=== PATIENT | female | born 1930 | race Caucasian/White ===

== ENCOUNTER 2017-03-15 02:58 | Inpatient (IN) | payer BC ==
--- NOTE | ~2017-03-15 | CN ---
Consultation Report [facility] [address] [place]. [address] NAME: CHRISTINE CEDEÑO : 32 STATUS : ADM Roxane PAT#: [id number] AGE: 86 ADM/REG DATE : 03/15/17 MR#: [id number] REPORT SERV DATE: 03/15/17 DICTATED BY: VASU PAK DATE: 03/15/17 REPORT STATUS : Draft TRANSCRIBED BY: ANAYELI DATE: 03/15/17 GI CONSULTATION DATE OF CONSULTATION: 03/15/2017 REASON FOR CONSULTATION: Evaluation and management of lower GI bleeding. HISTORY OF PRESENT ILLNESS: Ms. Cedeño is a very pleasant 86-year-old female patient known to Dr. 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 She states that she was in her typical state of health yesterday. She went to bed last night after watching the news, only to be awakened shortly after midnight with the sensation, she needed to have a bowel movement. She states that she had some mild lower abdominal cramps, went to the bathroom, felt as if she had diarrhea, stated that her stool "smelt like blood to her." She wiped and saw nothing, but bright red blood. She states that she talked to her son about this and told him that if that happened a second time, they were coming to the emergency room. She states that it did indeed again happen for a second time; she states it was a large volume of maroon to bright red blood with clots intermixed as well as stool, but secondary to the continuance of bleeding, she came into the hospital for further evaluation and it is documented, and the patient and son tell me that she had subsequent four bowel movements in the emergency room as well as two bloody bowel movements since coming to the floor, and she states that if she have to get up and go use the restroom again. Hemoglobin on admission was 11.1, it has decreased to 9.2. Presently the only thing she complains of is some lower abdominal cramping that typically comes before her bowel movements. She has had no nausea, no vomiting. No fever, no chills. No chest pain. No shortness of breath. No melena. Her last colonoscopy was in 12/[address] Diamond, was showing rees diverticulosis as well as internal hemorrhoids. She is on a regimen of Plavix secondary to CVA, which has not been taken in two days. I have discussed with her and the son, the CT results that showed some extensive colonic diverticulosis with some very minimal haziness in the fat adjacent to the distal and sigmoid colon with questionable mild diverticulitis pattern. I did discuss with them colonoscopy. They want to proceed as she has continued to pass bright red blood. I discussed with them the risks, benefits, alternatives, and complications, detailed them to include but not limited to risk of bleeding, perforation, infection, reaction to medication, as well as cardiac and pulmonary side effects. I also did discuss with them that she is at an increased risk secondary to questionable diverticulitis during the procedure. They still want to proceed with colonoscopy. PAST MEDICAL HISTORY: Positive for diverticulosis; COPD; diverticulitis; CVA, with Plavix; hypothyroidism; and coronary artery disease with stents. SOCIAL HISTORY: She denies alcohol, tobacco, or illicits. She still lives independently and completes all of her activities of daily living on her own. Consultation Report [address] [place]. [address] NAME: CHRISTINE CEDEÑO : 32 STATUS : ADM Roxane PAT#: [id number] AGE: 86 ADM/REG DATE : 03/15/17 MR#: [id number] REPORT SERV DATE: 03/15/17 DICTATED BY: VASU PAK DATE: 03/15/17 REPORT STATUS : Draft TRANSCRIBED BY: ANAYELI DATE: 03/15/17 FAMILY HISTORY: Noncontributory from a GI standpoint. ALLERGIES: LISTED TO IV DYE, SULFA, CELECOXIB, MILK-CONTAINING PRODUCTS, CAFFEINE, MORPHINE, HYDROCORTISONE, PREDNISONE, PRILOSEC, AND CHOCOLATE. HOME MEDICATIONS: Not listed on the chart, but she endorses Plavix. No other blood thinners per her report, nor her son's report. Past records revealed Lotensin, calcium, Coreg, vitamin D3, Synthroid, Prilosec, potassium and eye drops. REVIEW OF SYSTEMS: A 10-point review of systems has been obtained with pertinent positives being addressed in the history of present illness. PHYSICAL EXAMINATION: VITAL SIGNS: Temperature 97.5, pulse 75, respirations 16, blood pressure 128/59. NEURO: Reveals an alert, elderly female, resting in bed with no focal deficits. GENERAL: Cooperative, in no apparent distress. Awake, alert, and oriented x3. HEAD, EARS, EYES, NOSE, AND THROAT: Anicteric. Pupils equal, round, reactive to light and accommodation. Normocephalic and atraumatic. NECK: No JVD. No palpable nodes. Supple. LUNGS: Clear anteriorly with normal respiratory effort exhibited. Equal expansion. CARDIOVASCULAR SYSTEM: Regular rate and rhythm. ABDOMEN: Soft. Very minimum tenderness to the bilateral lower quadrants. No rebound, no guarding or organomegaly elicited on exam. EXTREMITIES: No edema. Normal distal pulses. SKIN: Warm, dry, and intact. PERTINENT LABORATORY DATA: Sodium 142, potassium 4, BUN of 16, creatinine 0.83. White count 8.9, hemoglobin 9.5, hematocrit 29.1, platelet count 357. Hemoglobin on 09/28/2016, was 10.6. ASSESSMENT: 1. Lower gastrointestinal bleed. This is likely a diverticular bleed. 2. Acute blood loss anemia. 3. Questionable mild diverticulitis by CT scan with normal white blood cell count and afebrile. PLAN: 1. Colon prep. 2. Follow H and H. 3. Transfuse if hemoglobin less than 8. 4. Continue antibiotics started by hospitalist. Further recommendations to follow endoscopy. Consultation Report [place] [address] [place] [address] NAME: CHRISTINE CEDEÑO : 31 STATUS : ADM Roxane PAT#: [id number] AGE: 86 ADM/REG DATE : 03/15/17 MR#: [id number] REPORT SERV DATE: 03/15/17 DICTATED BY: VASU PAK DATE: 03/15/17 REPORT STATUS : Draft TRANSCRIBED BY: ANAYELI DATE: 03/15/17 DYLON/ANAYELI Lisco CRISTINA Law / [id number] CC: DO Navi Motta MD
--- NOTE | ~2017-03-15 | EGD ---
EGD REPORT [facility] [address] [place] [address] NAME: CHRISTINE CEDEÑO : 32 STATUS : ADM Roxane PAT#: [id number] AGE: 86 ADM/REG DATE : 03/15/17 MR#: [id number] REPORT SERV DATE: 03/16/17 DICTATED BY: SHANE MARK DATE: 03/16/17 REPORT STATUS : Draft TRANSCRIBED BY: [facility] DATE: 03/16/17 Endoscopy Center Patient Name: Christine Cedeño Date of : 1930 Attending MD: SHANE MARK MD Procedure Date No Time: 03/16/2017 Procedure: Colonoscopy Indications: Hematochezia Referring MD: Navi Johnston Medicines: Monitored Anesthesia Care Complications: No immediate complications. Estimated blood loss: None. Procedure: Pre-Anesthesia Assessment: - ASA Grade Assessment: III - A patient with severe systemic disease. After I obtained informed consent, the scope was passed under direct vision. Throughout the procedure, the patient's blood pressure, pulse, and oxygen saturations were monitored continuously. The CF [id number] was introduced through the anus and advanced to the cecum, identified by appendiceal orifice and ileocecal valve. The colonoscopy was performed without difficulty. The patient tolerated the procedure well. The quality of the bowel preparation was good. Findings: The perianal exam was abnormal. Findings include non-thrombosed external hemorrhoids. The digital rectal exam was normal. Pertinent negatives include no palpable rectal lesions. Many small and large-mouthed diverticula were found in the sigmoid colon, in the descending colon, in the transverse colon and in the ascending colon. Non-bleeding internal hemorrhoids were found during retroflexion and were large. The exam was otherwise without abnormality. Impression: - Non-thrombosed external hemorrhoids found on perianal exam. - Diverticulosis in the sigmoid colon, in the descending colon, in the transverse colon and in the ascending colon. - Non-bleeding internal hemorrhoids. - The examination was otherwise normal. - A bleeding source was not identified, but was likely diverticular in nature. Rebleeding is unlikely in the EGD REPORT [address] [address] NAME: CHRISTINE CEDEÑO : 31 STATUS : ADM Roxane PAT#: [id number] AGE: 86 ADM/REG DATE : 03/15/17 MR#: [id number] REPORT SERV DATE: 03/16/17 DICTATED BY: SHANE MARK DATE: 03/16/17 REPORT STATUS : Draft TRANSCRIBED BY: [employer] DATE: 03/16/17 near future. Recommendation: - Return patient to hospital ko for observation. - Full liquid diet today. - Use fiber, for example Citrucel, Fibercon, Konsyl or Metamucil. - Hold antiplatelet/anticoagulation x 3 days Procedure Code(s): --- Professional --- 11302, Colonoscopy, flexible, proximal to splenic flexure; diagnostic, with or without collection of specimen(s) by brushing or washing, with or without colon decompression (separate procedure) Diagnosis Code(s): --- Professional --- K64.4, Residual hemorrhoidal skin tags K64.8, Other hemorrhoids K57.30, Diverticulosis of large intestine without perforation or abscess without bleeding K92.1, Melena CPT copyright 2013 [employer]. All rights reserved. The codes documented in this report are preliminary and upon tea taster review may be revised to meet current compliance requirements. Shane Mark MD SHANE MARK MD 03/16/2017 8:21 AM This report has been signed electronically. Number of Addenda: 0 Note Initiated On: 03/16/2017 7:28 AM Scope Withdrawal Time 0 hours 7 minutes 18 seconds [id number] [id number]
--- NOTE | ~2017-03-15 | HP ---
History And Physical [facility] [address] [place]. [address] NAME: CHRISTINE CEDEÑO : 31 STATUS : ADM Roxane PAT#: [id number] AGE: 86 ADM/REG DATE : 03/15/17 MR#: [id number] REPORT SERV DATE: 03/15/17 DICTATED BY: PRAVIN MOBLEY DATE: 03/15/17 REPORT STATUS : Draft TRANSCRIBED BY: MODL DATE: 03/15/17 DATE OF ADMISSION: 03/15/2017 CHIEF COMPLAINT: Bleeding per rectum. HISTORY OF PRESENT ILLNESS: This is an 86-year-old female with a history of diverticulitis in the past, hypothyroidism, hypertension, and coronary artery disease, and also a history of CVA for which she is on Plavix, who presents to the emergency room at [facility] with the above-mentioned complaint. History is obtained from the patient and her son, who is at bedside, and reviewing data available on the [employer] system. According to Mrs. Cedeño, she had been in her usual state of health until last night when around just past midnight she woke up from her sleep thinking she had to have a bowel movement or had diarrhea. She went to the bathroom and found the commode filled with dark maroonish or black tarry blood. It also did not smell right to her. When she wiped, she saw bright red blood as well. She immediately told her son that they need to go to the emergency room, and came over here. While here she has had four other bloody movements as well. In the emergency room, she had indeed acute gastrointestinal bleeding, and films of the CT scan of the abdomen and pelvis did not show any acute diverticulitis. Hospitalist Service is asked to admit her for further evaluation and treatment. At the time of my evaluation, she denied any chest pain, palpitations, or orthopnea. She had no cough, hemoptysis, night sweats, or weight loss. She denied any recent falls or loss of consciousness. No history of fevers, chills, nausea, or vomiting. She denied any hematemesis or hematuria. No other history of recent travel or exposures. PAST MEDICAL HISTORY: Significant for coronary artery disease with stent placement, on Plavix; history of CVA in the past; history of hypothyroidism. She also has COPD and history of diverticulitis. SOCIAL HISTORY: She has never smoked. Does not drink, or use recreational drugs. FAMILY HISTORY: Noncontributory. MEDICATIONS: Her medications at home were reviewed by me in the chart today and reordered by me. REVIEW OF SYSTEMS: As in history of present illness. All other systems were reviewed in detail and are quite unremarkable. PHYSICAL EXAMINATION: GENERAL: This is a pleasant 86-year-old, not in any acute distress. History And Physical [address] [address] NAME: CHRISTINE CEDEÑO : 32 STATUS : ADM Roxane PAT#: [id number] AGE: 86 ADM/REG DATE : 03/15/17 MR#: [id number] REPORT SERV DATE: 03/15/17 DICTATED BY: PRAVIN MOBLEY DATE: 03/15/17 REPORT STATUS : Draft TRANSCRIBED BY: ANAYELI DATE: 03/15/17 HEENT: Head is atraumatic and normocephalic. She is alert, awake, oriented to time, place, and person. Pupils are equal, reacting to light and accommodating. External ocular muscles are intact. Membranes are moist and pink. Sclerae are nonicteric. NECK: Supple with no jugular venous distention, lymphadenopathy, or thyromegaly. LUNGS: Clear to auscultation with no wheezes, rubs, or crackles. HEART: Heart sounds were regular with no murmurs, rubs, or gallops. ABDOMEN: Soft and nontender. Bowel sounds are present. EXTREMITIES: No cyanosis, clubbing, or edema. NEUROLOGIC: Grossly intact. No focal sensory or motor deficits. Higher functions appeared intact. Gait was not examined. VITAL SIGNS: Her temperature today was 96.8, pulse 75, respirations 16 a minute, blood pressure was 150/76, and oxygen saturations were 98%, breathing 2 L of oxygen via nasal cannula. LABORATORY DATA: Laboratory data reviewed on the [facility] system showed normal CMP. CBC showed white blood cell count of 10,000, hemoglobin was 11.1, hematocrit 33.7, and platelet count was 375,000. Her films of the CT scan of the abdomen and pelvis were reviewed by me on the PACS today and interpreted by me. Official Radiology comments were also reviewed. There is colonic diverticulosis and possibly mild diverticulitis seen according to Radiology who had just called in. A 12-lead EKG done in the emergency room was reviewed and interpreted by me. There is normal sinus rhythm with a rate of [address] elevations. There is right bundle-branch block. IMPRESSION: 1. Acute gastrointestinal bleeding. 2. Mild diverticulitis. 3. Gastroesophageal reflux disease. 4. History of diverticulitis. 5. Chronic obstructive pulmonary disease. 6. Hypertension. 7. Coronary artery disease with stent. 8. History of cerebrovascular accident. 9. Hypothyroidism. PLAN: We will admit Ms Cedeño to the Hospitalist Service for a 24-hour observation period. We will keep her n.p.o., consult Gastroenterology Service to see her in the morning. We will start her on Protonix IV infusion. Check hemoglobin and hematocrit levels every 6 hours and transfuse if needed. We will also start her on empiric IV antibiotics after cultures are drawn. We will start her on IV fluids for volume replacement. Follow chemistry, electrolytes in the morning along with CBC. We will also place her on bronchodilator treatments for COPD, although she has a history of never being a smoker. We will also check her TSH and continue replacement therapy. She will be on SCDs for DVT History And Physical [address] [address] NAME: CHRISTINE CEDEÑO : 32 STATUS : ADM Roxane PAT#: [id number] AGE: 86 ADM/REG DATE : 03/15/17 MR#: [id number] REPORT SERV DATE: 03/15/17 DICTATED BY: PRAVIN MOBLEY DATE: 03/15/17 REPORT STATUS : Draft TRANSCRIBED BY: ANAYELI DATE: 03/15/17 prophylaxis while here as well. I have discussed the above plans with the patient. Her questions were answered and she is agreeable to the above recommendations. Hospitalist Service will be following her during her stay here. /ANAYELI Pravin Mobley M.D. / [id number] CC: DO Navi Motta MD
--- NOTE | ~2017-03-15 | DS ---
Discharge Summary [facility] [address] [place]. [address] NAME: CHRISTINE CEDEÑO : 32 STATUS : ADM Roxane PAT#: [id number] AGE: 86 ADM/REG DATE : 03/15/17 MR#: [id number] REPORT SERV DATE: 03/17/17 DICTATED BY: MADIE ROJAS DATE: 03/17/17 REPORT STATUS : Draft TRANSCRIBED BY: MODL DATE: 03/17/17 ADMISSION DATE: 03/15/2017 DISCHARGE DATE: 03/17/2017 HOSPITAL COURSE: This is an 86-year-old female with known history of diverticulitis, hypothyroidism, hypertension, CAD, and history of PCI last in 2004, was on Plavix prior to coming in, known history of stroke as well. Patient with clinical COPD; however, she never smoked, may have had secondhand smoke exposure. She came in with bright red blood per rectum, at least 3 bloody bowel movements. Her hemoglobin dropped from 11 to 7.4, got a unit of blood. As a result, the patient will be given oral iron as an outpatient, and the patient had a colonoscopy by GI with a PPI drip for hematochezia that showed nonthrombosed external hemorrhoids found on perianal exam; diverticulosis in sigmoid, descending, transverse, and ascending colon; and nonbleeding internal hemorrhoids, bleeding source not identified, likely diverticular in nature, rebleeding is likely in the near future. We will hold the antiplatelets for 3 total days for a colonoscopy. As a result, we will discontinue her PPI. She has been pretty normotensive without her antihypertensives likely due to volume depletion. We stopped her IV fluids last night. As a result, I will lower her benazepril to half dose from home, and given some sigmoid diverticulitis radiographically initially on CT with elevated white count, we will continue Levaquin and Flagyl for eight more days. The patient is amenable for discharge and wants to go home. We provided a rolling walker. Follow up with GI in 4 to 8 weeks. Follow up with PCP in two weeks. I explained the patient may need hydrocortisone suppository cream. Make sure she has regular bowel movements and regular fiber like Metamucil increased from her baseline and increased water intake from baseline. DISCHARGE MEDICATIONS: Levaquin 750 p.o. daily for 8 more days; psyllium 1 packet p.o. daily; Flagyl 500 p.o. t.i.d. for 8 more days as well as having benazepril 10 mg p.o. daily, that is a reduction from 20 p.o. daily; Synthroid 75 mcg p.o. daily; Plavix 75 p.o. daily, restart in two days; Claritin 10 p.o. daily p.r.n.; Zantac p.r.n.; and iron sulfate 300 p.o. t.i.d. with meals. CONSULTS: GI. PROCEDURES: Colonoscopy. DISCHARGE DIAGNOSES: 1. Acute blood loss anemia due to diverticular lower gastrointestinal bleed, has bright red blood per rectum. 2. History of coronary artery disease. 3. History of diverticulitis. 4. History of stroke. All questions were answered, it took over 30 minutes to do. Discharge Summary [address] [address] NAME: CHRISTINE CEDEÑO : 32 STATUS : ADM Roxane PAT#: [id number] AGE: 86 ADM/REG DATE : 03/15/17 MR#: [id number] REPORT SERV DATE: 03/17/17 DICTATED BY: MADIE ROJAS DATE: 03/17/17 REPORT STATUS : Draft TRANSCRIBED BY: ANAYELI DATE: 03/17/17 ERIK/ANAYELI Madie Rojas DO / [id number] CC: DO Navi Motta MD
[2017-03-15 00:54] LABS: BASOPHILS 0.7 %; BASOPHILS ABSOLUTE 0.07 10/3/uL (0.0-0.16); EOSINOPHILS 6.8 %; EOSINOPHILS ABSOLUTE 0.68 10/3/uL (0.0-0.53); HEMATOCRIT 33.7 % (36.0-48.0); HEMOGLOBIN 11.1 g/dL (12.0-16.0); IMMATURE GRANULOCYTES 0.3 %; IMMATURE GRANULOCYTES ABSOLUTE 0.03 10/3/uL (0.0-0.11); LYMPHOCYTES 33.7 %; LYMPHOCYTES ABSOLUTE 3.36 10/3/uL (0.67-4.30); MEAN CORPUS HGB CONC 32.9 g/dL (32.0-36.0); MEAN CORPUSCULAR HEMOGLOB 28.5 pg (26.0-34.0); MEAN PLATELET VOLUME 8.2 fL (9.2-13.0); MONOCYTES 6.2 %; MONOCYTES ABSOLUTE 0.62 10/3/uL (0.21-1.20); NEUTROPHILS 52.3 %; NEUTROPHILS ABSOLUTE 5.22 10/3/uL (2.02-8.40); PLATELET COUNT 375 10/3/uL (150-400); RBC DISTRIBUTION WIDTH 13.7 % (12.0-16.0); RED CELL COUNT 3.89 10/6/uL (4.0-5.6)
[2017-03-15 00:57] LABS: ER CBC TAT 0 Hrs 07 Mins; MANUAL DIFF NO %; MEAN CORPUSCULAR VOLUME 86.6 fL (80-100)
[2017-03-15 01:03] LABS: PARTIAL THROMBO TIME 37.1 SEC (22.5-37.2); PROTIME (NOT ORD) 13.4 SEC (12.0-14.5)
[2017-03-15 01:09] LABS: A/G RATIO 0.9 (0.7-1.9); ALBUMIN 3.4 G/DL (3.5-5.0); ALKALINE PHOSPHATASE 98 U/L (45-117); BUN (BLOOD UREA NITROGEN) 19 MG/DL (6-23); CALCIUM, SERUM 8.5 MG/DL (8.5-10.4); CHLORIDE, SERUM 103 MMOL/L (96-112); CO2 (CARBON DIOXIDE) 26 MMOL/L (24-34); CREATININE 0.88 MG/DL (0.55-1.02); GFR AFRICAN AMERICAN 69 ML/MIN (>=60); GFR NON AFRICAN AMERICAN 60 ML/MIN (>=60); GLOBULIN 3.6 G/DL (2.5-4.1); GLUCOSE, SERUM 92 MG/DL (60-99); POTASSIUM, SERUM 4.1 MMOL/L (3.5-5.3); SGOT(AST) 18 U/L (5-40); SGPT(ALT) 20 U/L (5-65); SODIUM, SERUM 138 MMOL/L (135-148); TOTAL BILIRUBIN 0.4 MG/DL (0-1.2)
[~2017-03-15 02:58] MED LIST: ACETONIDE CREAM; ACTONEL150 MG PO; ANADS PO; ASAB PO; CALCIUM PO; CLARIT10 PO; COREG6 PO; CORTIZONE-101 % TOP; DEPAKOT250 PO; EYE OP; FISH OIL1200 MG PO; FISH OIL300 MG PO; FISH-EPA1000 MG PO; FLEX PO; FOLBEE PO; KLOR-CON 1010 MEQ PO; KLOR-CON M1010 MEQ PO; LORTAB 5 PO; LOTE10 PO; LOTE20 PO; LOTREL1 CA1 PO; MAGNEBIND PO; MAGNEBIND300 MG PO; MULTIPLE VIT PO; MULTIVITAMI1 PO; MURO1282% OPH; NATTOKINASE; NORCO1 TA2 PO; NORV5 PO; OMEGA 3 PO; OMEGA OIL PO; OS500+D PO; PEPCID40 MG PO; PLAVIX; PLAVIX PO; PRILOSEC40 MG PO; PVC V; RED YEAS1 OR; RED YEAS1 PO; REFRESH TEAR0.5 % OP; SUPPORT PO; SYN075 PO; TRIAMCINOLON0.5 % EX; TUMSROLL PO; VITAMIN B PO; VITAMIN C PO; VITAMIN D1000 UNI1 PO; VITC500 PO; ZOFRAN4 PO; [UNRECOGNIZED DRUG - OTHER] PO; [UNRECOGNIZED DRUG - OTHER] PO
[2017-03-15 09:53] LABS: BASOPHILS 0.6 %; BASOPHILS ABSOLUTE 0.05 10/3/uL (0.0-0.16); EOSINOPHILS 3.9 %; EOSINOPHILS ABSOLUTE 0.35 10/3/uL (0.0-0.53); HEMOGLOBIN 9.2 g/dL (12.0-16.0); IMMATURE GRANULOCYTES 0.2 %; IMMATURE GRANULOCYTES ABSOLUTE 0.02 10/3/uL (0.0-0.11); LYMPHOCYTES 24.8 %; MEAN CORPUS HGB CONC 32.5 g/dL (32.0-36.0); MEAN PLATELET VOLUME 8.6 fL (9.2-13.0); MONOCYTES 4.7 %; MONOCYTES ABSOLUTE 0.42 10/3/uL (0.21-1.20); NEUTROPHILS 65.8 %; NEUTROPHILS ABSOLUTE 5.83 10/3/uL (2.02-8.40); PLATELET COUNT 357 10/3/uL (150-400); RED CELL COUNT 3.29 10/6/uL (4.0-5.6); WHITE BLOOD CELLS 8.9 10/3/uL (4.5-10.5)
[2017-03-15 09:56] LABS: HEMATOCRIT 28.3 % (36.0-48.0)
[2017-03-15 09:57] LABS: MANUAL DIFF NO %
[2017-03-15 10:09] LABS: BUN (BLOOD UREA NITROGEN) 16 MG/DL (6-23); CALCIUM, SERUM 8.2 MG/DL (8.5-10.4); CHLORIDE, SERUM 108 MMOL/L (96-112); CO2 (CARBON DIOXIDE) 24 MMOL/L (24-34); CREATININE 0.83 MG/DL (0.55-1.02); GFR AFRICAN AMERICAN 75 ML/MIN (>=60); GFR NON AFRICAN AMERICAN 64 ML/MIN (>=60); GLUCOSE, SERUM 94 MG/DL (60-99); SODIUM, SERUM 142 MMOL/L (135-148)
[2017-03-15 10:32] LABS: HEMATOCRIT 29.1 % (36.0-48.0); HEMOGLOBIN 9.5 g/dL (12.0-16.0)
[2017-03-15] MEDS ORDERED: KDUR10 PO ×2 (16:19→16:28)
[2017-03-15] MEDS ORDERED: NORV5 PO (16:19)
[2017-03-15] MEDS ORDERED: PLAVIX PO (16:19)
[2017-03-15] MEDS ORDERED: LOTE20 PO (16:19)
[2017-03-15] MEDS ORDERED: LEVOTHYROXIN75 MCG PO (16:19)
[2017-03-15] MEDS ORDERED: ZANTAC 150 PO (16:20)
[2017-03-15] MEDS ORDERED: CLARIT10 PO (16:20)
[2017-03-15] MEDS ORDERED: FORMULA PO (16:21)
[2017-03-15] MEDS ORDERED: CALCIUM/MAGNESIUM PO (16:21)
[2017-03-15] MEDS ORDERED: [UNRECOGNIZED DRUG - OTHER] PO (16:21)
[2017-03-15] MEDS ORDERED: CHROMIUM GTF PO (16:22)
[2017-03-15] MEDS ORDERED: FOLATE PO (16:22)
[2017-03-15] MEDS ORDERED: [UNRECOGNIZED DRUG - OTHER] PO (16:23)
[2017-03-15] MEDS ORDERED: 8 HOUR650 MG PO (16:23)
[2017-03-15] MEDS ORDERED: DIGESTIVE GOLD PO (16:24)
[2017-03-15] MEDS ORDERED: RED YEAS1 PO ×2 (16:24)
[2017-03-15] MEDS ORDERED: SALMON OIL PO (16:25)
[2017-03-15] MEDS ORDERED: [UNRECOGNIZED DRUG - OTHER] PO (16:26)
[2017-03-15 16:42] LABS: HEMATOCRIT 24.2 % (36.0-48.0); HEMOGLOBIN 8.1 g/dL (12.0-16.0)
[2017-03-15 23:47] LABS: HEMATOCRIT 22.7 % (36.0-48.0); HEMOGLOBIN 7.4 g/dL (12.0-16.0)
[2017-03-16 09:48] LABS: BASOPHILS 0.4 %; BASOPHILS ABSOLUTE 0.04 10/3/uL (0.0-0.16); EOSINOPHILS 2.5 %; EOSINOPHILS ABSOLUTE 0.25 10/3/uL (0.0-0.53); IMMATURE GRANULOCYTES 0.2 %; IMMATURE GRANULOCYTES ABSOLUTE 0.02 10/3/uL (0.0-0.11); LYMPHOCYTES 15.9 %; MEAN CORPUS HGB CONC 33.8 g/dL (32.0-36.0); MEAN CORPUSCULAR HEMOGLOB 28.8 pg (26.0-34.0); MEAN CORPUSCULAR VOLUME 85.1 fL (80-100); MEAN PLATELET VOLUME 8.4 fL (9.2-13.0); NEUTROPHILS ABSOLUTE 7.24 10/3/uL (2.02-8.40); PLATELET COUNT 290 10/3/uL (150-400); RBC DISTRIBUTION WIDTH 14.3 % (12.0-16.0); RED CELL COUNT 3.16 10/6/uL (4.0-5.6); WHITE BLOOD CELLS 10.1 10/3/uL (4.5-10.5)
[2017-03-16 09:49] LABS: HEMATOCRIT 26.9 % (36.0-48.0); HEMOGLOBIN 9.1 g/dL (12.0-16.0); MANUAL DIFF NO %
[2017-03-16 09:49] LABS: HEMATOCRIT 27.3 % (36.0-48.0); HEMOGLOBIN 9.1 g/dL (12.0-16.0)
[2017-03-16 09:53] LABS: INTERNATIONAL NORMAL RATI 1.3 UNITS (-)
[2017-03-16 09:54] LABS: PROTIME (NOT ORD) 15.9 SEC (12.0-14.5)
[2017-03-16 10:12] LABS: BUN (BLOOD UREA NITROGEN) 6 MG/DL (6-23); CALCIUM, SERUM 8.1 MG/DL (8.5-10.4); CHLORIDE, SERUM 108 MMOL/L (96-112); CO2 (CARBON DIOXIDE) 26 MMOL/L (24-34); GFR AFRICAN AMERICAN 68 ML/MIN (>=60); GFR NON AFRICAN AMERICAN 58 ML/MIN (>=60); GLUCOSE, SERUM 98 MG/DL (60-99); PHOSPHORUS, SERUM 2.1 MG/DL (2.5-4.5); POTASSIUM, SERUM 3.2 MMOL/L (3.5-5.3); SODIUM, SERUM 143 MMOL/L (135-148)
[2017-03-16 16:14] LABS: HEMATOCRIT 24.8 % (36.0-48.0); HEMOGLOBIN 8.4 g/dL (12.0-16.0)
[2017-03-16 23:07] LABS: HEMATOCRIT 25.5 % (36.0-48.0); HEMOGLOBIN 8.5 g/dL (12.0-16.0)
[2017-03-17 07:15] LABS: BASOPHILS 0.5 %; BASOPHILS ABSOLUTE 0.05 10/3/uL (0.0-0.16); EOSINOPHILS 1.3 %; EOSINOPHILS ABSOLUTE 0.14 10/3/uL (0.0-0.53); HEMOGLOBIN 8.9 g/dL (12.0-16.0); IMMATURE GRANULOCYTES 0.4 %; IMMATURE GRANULOCYTES ABSOLUTE 0.04 10/3/uL (0.0-0.11); LYMPHOCYTES 20.6 %; MEAN CORPUS HGB CONC 34.2 g/dL (32.0-36.0); MEAN CORPUSCULAR HEMOGLOB 29.5 pg (26.0-34.0); MEAN CORPUSCULAR VOLUME 86.1 fL (80-100); MEAN PLATELET VOLUME 8.4 fL (9.2-13.0); MONOCYTES 11.5 %; MONOCYTES ABSOLUTE 1.23 10/3/uL (0.21-1.20); NEUTROPHILS 65.7 %; PLATELET COUNT 282 10/3/uL (150-400); RBC DISTRIBUTION WIDTH 14.5 % (12.0-16.0); RED CELL COUNT 3.02 10/6/uL (4.0-5.6); WHITE BLOOD CELLS 10.7 10/3/uL (4.5-10.5)
[2017-03-17 07:19] LABS: MANUAL DIFF NO %
[2017-03-17 07:34] LABS: BUN (BLOOD UREA NITROGEN) 6 MG/DL (6-23); CALCIUM, SERUM 7.9 MG/DL (8.5-10.4); CHLORIDE, SERUM 103 MMOL/L (96-112); CO2 (CARBON DIOXIDE) 26 MMOL/L (24-34); CREATININE 0.91 MG/DL (0.55-1.02); GFR AFRICAN AMERICAN 67 ML/MIN (>=60); GFR NON AFRICAN AMERICAN 58 ML/MIN (>=60); GLUCOSE, SERUM 90 MG/DL (60-99); PHOSPHORUS, SERUM 2.7 MG/DL (2.5-4.5); POTASSIUM, SERUM 3.5 MMOL/L (3.5-5.3); SODIUM, SERUM 139 MMOL/L (135-148)
[2017-03-17] MEDS ORDERED: LEVAQUIN750 MG PO (10:00)
[2017-03-17] MEDS ORDERED: METPAKSF PO (10:00)
[2017-03-17] MEDS ORDERED: FLAG500TAB PO (10:01)
[2017-03-17] MEDS ORDERED: FESO4 PO (10:09)
[2017-03-17 11:05] LABS: HEMATOCRIT 26.6 % (36.0-48.0)
[2017-07-23] MEDS ORDERED: CLARIT10 PO (14:47)
[2017-07-23] MEDS ORDERED: LOTE20 PO (14:48)
[2017-07-23] MEDS ORDERED: LEVOTHYROXIN75 MCG PO (14:48)
[2017-07-23] MEDS ORDERED: PLAVIX PO (14:48)
[2017-07-23] MEDS ORDERED: K-TABS10 MEQ PO (14:48)
[2017-07-23] MEDS ORDERED: ZANTAC150 MG PO (14:50)
[2017-07-23] MEDS ORDERED: PRILOSEC40 MG PO (14:50)
[2017-07-23] MEDS ORDERED: MAGNEBIND PO (14:50)
[2017-07-23] MEDS ORDERED: VITAMIN D2000 UNIT PO (14:51)
[2017-07-23] MEDS ORDERED: [UNRECOGNIZED DRUG - OTHER] PO (14:51)
[2017-07-23] MEDS ORDERED: SALMON OIL PO (14:52)
[2017-07-23] MEDS ORDERED: CHROMIUM PO (14:53)
[2017-07-23] MEDS ORDERED: FOLIC ACID800 MCG PO (14:53)
[2017-07-23] MEDS ORDERED: [UNRECOGNIZED DRUG - OTHER] PO (14:54)
[2017-07-23] MEDS ORDERED: [UNRECOGNIZED DRUG - OTHER] PO (14:54)
[2017-08-08] MEDS ORDERED: LIPITOR20 PO (14:17)
[2017-08-08] MEDS ORDERED: PERCOCET 7.5/321 TAB PO (14:18)
[2017-08-08] MEDS ORDERED: PROTONIX PO (14:18)
[2017-08-08] MEDS ORDERED: FERROUS SULF325 M1 PO (14:19)
== END 2017-03-17 18:12 | disposition home or self-care (01) | DRG 378 ==
LOC: ER 02:58 → 1SO 05:13
PROVIDERS: Internal Medicine; Internal Medicine Gastroenterology; Internal Medicine Pulmonary Disease; Specialist
PROC: 0DJD8ZZ Inspection of Lower Intestinal Tract, Via Natural or Artificial Opening Endoscopic (ICD-10-PCS; principal; 2017-03-16 07:00)
DX: K57.31 Diverticulosis of large intestine without perforation or abscess with bleeding (principal); D62 Acute posthemorrhagic anemia; J44.9 Chronic obstructive pulmonary disease, unspecified; I45.10 Unspecified right bundle-branch block; I25.10 Atherosclerotic heart disease of native coronary artery without angina pectoris; E03.9 Hypothyroidism, unspecified; I10 Essential (primary) hypertension; K64.4 Residual hemorrhoidal skin tags; K64.8 Other hemorrhoids; K21.9 Gastro-esophageal reflux disease without esophagitis; Z79.02 Long term (current) use of antithrombotics/antiplatelets; Z79.899 Other long term (current) drug therapy; Z86.73 Personal history of transient ischemic attack (TIA), and cerebral infarction without residual deficits; Z95.5 Presence of coronary angioplasty implant and graft
CPT/HCPCS: 36415; 74176; 80048; 80053; 83735; 84100; 84443; 85014; 85018; 85025; 85610; 85730; 86850; 86900; 86901; 86920; 93005; 94640; 96374; 97161-GP; 99285; A9270-GY; C9113; G0378; J1956; J1980; P9016